=== PATIENT | female | born 1985 | race Two or more races ===

== ENCOUNTER 2024-10-10 11:47 | Emergency (ER) | payer MEDICAID, SELFPAY ==
[2024-10-10 11:56] VITALS: PULSE 102; RESP 16; O2SAT 98; BMI 34.2
[2024-10-10 12:13] VITALS: BP 142/96; PULSE 92; RESP 18; TEMP 36.8; O2SAT 100; BMI 33.4
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
[2024-10-10] MEDS: ACETAMINOPHEN 500 MG TABLET 1000 MG PO (12:46)
[2024-10-10] MEDS: ONDANSETRON ODT 4 MG TABRAP PO (12:46)
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
[2024-10-10 14:25] VITALS: BP 137/84; PULSE 84; RESP 18; TEMP 36.7; O2SAT 100
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
== END 2024-10-10 14:57 | disposition home or self-care (01) ==
LOC: SERX 15:34
PROVIDERS: Emergency Provider Emergency Medicine
DX: S19.9XXA Unspecified injury of neck, initial encounter (principal); S06.9X9A Unspecified intracranial injury with loss of consciousness of unspecified duration, initial encounter; S09.93XA Unspecified injury of face, initial encounter; V89.2XXA Person injured in unspecified motor-vehicle accident, traffic, initial encounter; Y92.410 Unspecified street and highway as the place of occurrence of the external cause; E11.9 Type 2 diabetes mellitus without complications
CPT/HCPCS: 70450; 70486; 72125; 99284; Q0162; A9270

== ENCOUNTER → 2024-11-18 | Outpatient (CLI) | payer MEDICAID, SELFPAY ==
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
== END | disposition home or self-care (01) ==
PROVIDERS: PCP Physician Assistant; Referring Provider Physician Assistant; Visit Provider Physician Assistant
DX: R91.8 Other nonspecific abnormal finding of lung field (principal); Z01.810 Encounter for preprocedural cardiovascular examination
CPT/HCPCS: 71046